=== PATIENT | male | born 1955 | race Caucasian/White ===

== ENCOUNTER 2020-02-07 13:08 | Outpatient (CLI) | payer OTHER, SELFPAY ==
--- NOTE | ~2020-02-07 | CT_ITS ---
EXAMINATION: CT lung screening DATE: 02/07/2020 13:54 INDICATION: Personal history of tobacco use, prior smoker with 70 to pack year history TECHNIQUE: Computed tomography (CT) of the chest was performed without intravenous contrast. The dose -length product (DLP) was 103.46 mGy-cm. Automated exposure control and iterative reconstruction tech [employer] were employed. COMPARISON: 04/17/2018, 04/06/2017 FINDINGS: There is mild emphysema. There is a stable 5 mm nodule in the left upper lobe on image 38. No new or suspicious pulmonary nodule is identified. A fissural lymph node is noted in the right heide r fissure. The lungs are free of acute opacities. No pathologically enlarged thoracic lymph nodes are identified. The heart size is normal. Calcified coronary artery atherosclerosis is noted. There is n o pleural effusion or pneumothorax. IMPRESSION: 1. Lung-RADS category 2: Benign appearance or behavior. Continue annual screening with noncontrast lo w-dose chest CT in 12 months. Reviewed, dictated and finalized at location A. IMPRESSION: 1. Lung-RADS category 2: Benign appearance or behavior. Continue annual screeni ng with noncontrast low-dose chest CT in 12 months.
[2020-02-07 14:26] LABS: Basophils Absolute Auto 0.1 K/mm3 (0.0-0.1); Basophils Percent Auto 0.8 % (0.2-1.2); Eosinophils Absolute Auto 0.3 K/mm3 (0-0.3); Hematocrit 45.6 % (42.0-52.0); Hemoglobin 15.7 g/dL (14.0-18.0); Immature Granulocyte Absolute 0.04 K/mm3 (0.00-0.031); Immature Granulocyte Percent A 0.4 % (0-0.5); Lymphocytes Absolute Auto 3.15 K/mm3 (0.9-3.2); Mean Corpuscular HGB Conc 34.4 g/dl (32-36); Mean Corpuscular Hemoglobin 30.4 pg (26-34); Mean Corpuscular Volume 88.4 fl (80-100); Mean Platelet Volume 8.9 fl (7.4-10.4); Monocytes Absolute Auto 0.7 K/mm3 (0.1-0.6); Monocytes Percent Auto 6.9 % (2.6-8.5); Neutrophils Absolute Auto 6.2 K/mm3 (1.3-6.7); Neutrophils Percent Auto 58.9 % (45.5-73.1); Platelet Count Result 295 k/mm3 (150-375); Red Blood Count 5.16 M/mm3 (4.6-6.20); Red Cell Distribution Width 12.7 % (11.5-14.5); White Blood Count 10.5 K/mm3 (4.5-10.0)
[2020-02-07 14:40] LABS: Cholesterol 223 mg/dL (0-200); Creatine Kinase 136 U/L (55-170); HDL Direct 40 mg/dL; Triglycerides 115 mg/dL (<150); Uric Acid 7.5 mg/dL (3.5-8.5)
[2020-02-07 14:50] LABS: LDL Cholesterol Direct 168 mg/dL
[2020-02-07 15:09] LABS: Prostate Specific Antigen 0.9 ng/mL (< OR = 4.0)
[2020-02-11 13:02] LABS: Vitamin D 25 Hydroxy 47.1 ng/mL
== END 2020-02-07 13:09 | disposition home or self-care (01) ==
PROVIDERS: PCP Student in an Organized Health Care Education/Training Program; Visit Provider Student in an Organized Health Care Education/Training Program
DX: Z13.0 Encounter for screening for diseases of the blood and blood-forming organs and certain disorders involving the immune mechanism (principal); F17.211 Nicotine dependence, cigarettes, in remission; Z12.2 Encounter for screening for malignant neoplasm of respiratory organs; Z13.29 Encounter for screening for other suspected endocrine disorder; Z13.228 Encounter for screening for other metabolic disorders; Z13.220 Encounter for screening for lipoid disorders; Z12.5 Encounter for screening for malignant neoplasm of prostate
CPT/HCPCS: 36415; 80053; 80061; 82306; 82550; 84153; 84443; 84550; 85025; G0103; G0297

== ENCOUNTER 2020-07-18 06:57 | Outpatient (NON) | payer OTHER, SELFPAY ==
[2020-07-18 23:21] LABS: SARS-CoV-2 RNA PCR Negative
== END 2020-07-18 06:58 ==
PROVIDERS: PCP Student in an Organized Health Care Education/Training Program; Visit Provider Student in an Organized Health Care Education/Training Program
DX: R05 Cough (principal); Z20.828 Contact with and (suspected) exposure to other viral communicable diseases
CPT/HCPCS: 87635; C9803; U0003

== ENCOUNTER 2021-05-04 14:26 | Outpatient (CLI) | payer OTHER, SELFPAY ==
--- NOTE | ~2021-05-04 | CT_ITS ---
EXAMINATION: CT diagnostic chest wo con DATE: 05/04/2021 14:50 INDICATION: Cough and shortness of breath TECHNIQUE: Computed tomography (CT) of the chest was performed without intravenous contrast. The dose -length product (DLP) was 304.88 mGy-cm. Automated exposure control and iterative reconstruction tech [employer] were employed. COMPARISON: 02/07/2020 FINDINGS: There is mild emphysema. A stable 5 mm nodule is noted in the left upper lobe. No new pulmo nary nodules are identified. The lungs are free of acute opacities. There is no pleural effusion or p neumothorax. No pathologically enlarged thoracic lymph nodes are identified. The heart size is normal . Calcified coronary artery atherosclerosis is noted. There is moderate thoracic spondylosis. IMPRESSION: 1. Mild emphysema without acute findings. Reviewed, dictated and finalized at location A.
== END 2021-05-04 14:27 | disposition home or self-care (01) ==
LOC: ANHIMG 14:31
PROVIDERS: PCP Student in an Organized Health Care Education/Training Program; Visit Provider Student in an Organized Health Care Education/Training Program
DX: R06.02 Shortness of breath (principal); R05 Cough; J43.9 Emphysema, unspecified
CPT/HCPCS: 71250

== ENCOUNTER → 2022-06-08 07:30 | Outpatient (CLI) | payer OTHER, SELFPAY ==
--- NOTE | ~2022-06-08 | US_ITS ---
EXAMINATION: US aorta [facility] DATE: 06/08/2022 08:39 INDICATION: Abdominal aortic aneurysm screening TECHNIQUE: Grayscale, color Doppler, and pulsed Doppler images of the aorta and common iliac arteries were obtained. COMPARISON: None. FINDINGS: The proximal aorta measures 2.6 cm. The mid aorta measures 2.3 cm. The distal aorta measures 3.1 cm. The right common iliac artery measures 1.7 cm. The left common iliac artery measures 1.3 cm. IMPRESSION: 1. Mildly ectatic distal abdominal aorta measuring up to 3.1 cm. Reviewed, dictated and finalized at location B.
--- NOTE | ~2022-06-08 | CT_ITS ---
EXAMINATION: CT lung screening DATE: 06/08/2022 08:26 INDICATION: Nicotine dependence TECHNIQUE: Computed tomography (CT) of the chest was performed without intravenous contrast. Addition al 3D reconstructions utilizing coronal maximum intensity projection (MIP) were performed. Automated exposure control and iterative reconstruction technique were employed. The dose-length product was 16 9.54 mGy-cm. COMPARISON: 05/04/2021 FINDINGS: Mild emphysema. Unchanged 5 mm left upper lobe nodule. Also unchanged is a calcified right upper lobe nodule consistent with old granulomatous disease. No new or enlarging pulmonary nodules. No pneumoni a, pulmonary edema or pleural effusion. Heart size is normal. Atherosclerotic coronary artery calcifi c location. No pericardial effusion. Thoracic aorta is normal in caliber. No pathologically enlarged thoracic lymphadenopathy. Diffuse hepatic steatosis. Progression of severe spondylosis with Modic typ e III sclerotic endplate changes in the lower cervical and upper thoracic spine.. IMPRESSION: 1. Lung-RADS category 2: Benign appearance or behavior. Continue annual screening with noncontrast lo w-dose chest CT in 12 months. Reviewed, dictated and finalized at location B. IMPRESSION: 1. Lung-RADS category 2: Benign appearance or behavior. Continue annual screeni ng with noncontrast low-dose chest CT in 12 months.
== END ==
PROVIDERS: PCP Student in an Organized Health Care Education/Training Program; Visit Provider Student in an Organized Health Care Education/Training Program
DX: Z13.6 Encounter for screening for cardiovascular disorders (principal); F17.211 Nicotine dependence, cigarettes, in remission; I71.40 Abdominal aortic aneurysm, without rupture, unspecified
CPT/HCPCS: 71271; 76706

== ENCOUNTER → 2022-06-17 14:37 | Outpatient (CLI) | payer OTHER, SELFPAY ==
--- NOTE | ~2022-06-17 | US_ITS ---
EXAMINATION: US abdomen limited DATE: 06/17/2022 14:54 INDICATION: Abnormal liver function tests. TECHNIQUE: Multiple grayscale and Doppler ultrasound images of the abdomen were obtained. COMPARISON: Chest CT 06/08/2022 FINDINGS: The visualized portions of the head and body of the pancreas are normal. There is diffuse h epatic steatosis. No liver surface nodularity. There is normal flow in main portal vein. The gallblad hamilton is normal in size. No gallstones or gallbladder wall thickening. There was no sonographic Schwab sign. The common duct is normal and measures 4 mm. IMPRESSION: 1. Diffuse hepatic steatosis. Reviewed, dictated and finalized at location A. WINDER STRAP
== END ==
PROVIDERS: PCP Student in an Organized Health Care Education/Training Program; Visit Provider Student in an Organized Health Care Education/Training Program
DX: R74.8 Abnormal levels of other serum enzymes (principal); K76.0 Fatty (change of) liver, not elsewhere classified
CPT/HCPCS: 76705

== ENCOUNTER → 2023-08-19 09:17 | Outpatient (CLI) | payer OTHER, MEDICARE, SELFPAY ==
--- NOTE | ~2023-08-19 | US_ITS ---
EXAMINATION: US aorta DATE: 08/19/2023 09:51 INDICATION: AAA . TECHNIQUE: Grayscale and Doppler ultrasound images of the aorta and common iliac arteries were obtain ed. COMPARISON: 06/08/2022. FINDINGS: The proximal aorta measures 2.9 cm. The mid aorta measures 2.5 cm. There is mild fusiform d ilation of the distal aorta measuring up to 3.5 cm. The right proximal common iliac artery measures u p to 1.4 cm. The left proximal common iliac artery measures up to 1.6 cm. IMPRESSION: Fusiform infrarenal aortic aneurysm measuring up to 3.5 cm. Consider ultrasound aorta follow up in 2 years. Reviewed, dictated and finalized at location K. APPROVER
--- NOTE | ~2023-08-19 | CT_ITS ---
CT Scan of the Chest without Contrast: Clinical Indication: Lung cancer screening, personal history of nicotine dependence Technique: Contiguous sections were acquired throughout the chest without intravenous contrast. Dose reduction technique was used on this scan by utilizing automated exposure control and iterative recon struction technique. The dose-length product (DLP) was 161.64 mGy-cm. COMPARISON: 06/08/2022 Findings: There is no evidence of any significant mediastinal, hilar or axillary lymphadenopathy. The mediastin al soft tissues appear normal. There is no evidence of pleural or pericardial effusion. Stable 4 mm left upper lobe pulmonary nodule. Stable calcified right upper lobe granuloma. Images through the upper abdomen reveal probable diffuse fatty infiltration of liver. Impression: Lung RADS 2: Benign appearance. 12 month follow-up screening CT advised. Reviewed, dictated and finalized at [facility]. SANDER Impression: Lung RADS 2: Benign appearance. 12 month follow-up screening CT advised.
--- NOTE | ~2023-08-19 | CT_ITS ---
EXAMINATION: CT sinus wo con DATE: 08/19/2023 09:49 INDICATION: Chronic sinusitis TECHNIQUE: Computed tomography (CT) of the paranasal sinuses was performed without contrast. Iterativ e reconstruction technique was employed. Exam dose: 267.62 mGy-cm total exam DLP. COMPARISON: None FINDINGS: Minimal leftward bowing of the anterior nasal septum. Bilateral middle nasal turbinate intralamellar cell. There is very prominent mucoperiosteal thickening of the left maxillary sinus and soft tissue thicken ing of the left maxillary ostium and left infundibulum. There is limited minimal mucoperiosteal thickening of the right maxillary sinus. There is focal soft tissue thickening at the right maxillary ostium. The right infundibulum is patent. There is soft tissue thickening in the frontoethmoid areas bilaterally, right greater than left. No s ignificant abnormality of the frontal sinuses. Minimal anterolateral mucoperiosteal thickening of the dominant left sphenoid sinus. The mastoid air cells are normally developed bilaterally. Middle and inner ear apparatus appear normal bilaterally. IMPRESSION: Minimal leftward bowing of anterior nasal septum Bilateral middle nasal turbinate intralamellar cell Prominent mucoperiosteal thickening of left maxillary sinus, prominent soft tissue thickening of left maxillary ostium and infundibulum Mild soft tissue thickening at right maxillary ostium, minimal right maxillary sinus mucoperiosteal t hickening Focal soft tissue thickening at the frontoethmoid areas, right greater than left Minimal left sphenoid sinus mucoperiosteal thickening Reviewed, dictated and finalized at [facility]. Reviewed, dictated and finalized at location B. ICAL ENGINEERING PROFESSOR IMPRESSION: Minimal leftward bowing of anterior nasal septum Bilateral middle nasal turbinate intralamellar cell Prominent mucoperiosteal thickening of left maxillary sinus, prominent soft tis pretty thickening of left maxillary ostium and infundibulum Mild soft tissue thickening at right maxillary ostium, minimal right maxillary sinus mucoperiosteal thickening Focal soft tissue thickening at the frontoethmoid areas, right greater than lef t Minimal left sphenoid sinus mucoperiosteal thickening
== END ==
PROVIDERS: PCP Otolaryngology; Visit Provider Student in an Organized Health Care Education/Training Program
DX: Z12.2 Encounter for screening for malignant neoplasm of respiratory organs (principal); F17.210 Nicotine dependence, cigarettes, uncomplicated; J32.9 Chronic sinusitis, unspecified; J34.89 Other specified disorders of nose and nasal sinuses; I71.43 Infrarenal abdominal aortic aneurysm, without rupture
CPT/HCPCS: 70486; 71271; 76775

== ENCOUNTER 2024-08-22 11:09 | Outpatient (CLI) | payer MEDICARE, SELFPAY ==
--- NOTE | ~2024-08-22 | CT_ITS ---
EXAMINATION:CT lung screening DATE: 08/22/2024 11:22 INDICATION: Nicotine dependence. 72 pack year history. TECHNIQUE: Computed tomography (CT) of the chest was performed without intravenous contrast. Automate d exposure control and iterative reconstruction technique were employed. The dose-length product (DLP ) was 157.40 mGy-cm. COMPARISON: Chest CT 08/19/2023 FINDINGS: There is mild emphysema. There is a 2 mm nodule in right upper lobe. There is a stable 4 mm nodule in left upper lobe. A calcified right lung nodule and calcified right hilar lymph nodes are c onsistent with old granulomatous disease. No pleural effusion. The heart size is normal. There are co ronary artery calcifications. No pericardial effusion. There is diffuse hepatic steatosis. There is s evere cervical and thoracic spondylosis. IMPRESSION: 1. Lung-RADS category 2: Benign appearance or behavior. Continue annual screening with noncontrast lo w-dose chest CT in 12 months. Reviewed, dictated and finalized at location A. [employer]ER [employer]ER IMPRESSION: 1. Lung-RADS category 2: Benign appearance or behavior. Continue annual screeni ng with noncontrast low-dose chest CT in 12 months.
== END 2024-08-22 11:10 | disposition home or self-care (01) ==
LOC: MICIMG 11:10
PROVIDERS: PCP Otolaryngology; Visit Provider Student in an Organized Health Care Education/Training Program
DX: Z12.2 Encounter for screening for malignant neoplasm of respiratory organs (principal); Z87.891 Personal history of nicotine dependence
CPT/HCPCS: 71271